=== PATIENT | male | born 1955 | race Caucasian/White ===

== ENCOUNTER → 2019-04-09 08:28 | Outpatient (CLI) | payer OTHER | END | disposition home or self-care (01) | LOC: D.HCCARDIO 08:28 → D.HCCECHO 11:30 | PROVIDERS: ATTEND Internal Medicine Cardiovascular Disease | DX: I20.9 Angina pectoris, unspecified (principal); R07.9 Chest pain, unspecified ==

== ENCOUNTER 2019-04-24 06:19 | Outpatient (CLI) | payer OTHER ==
[~2019-04-24] VITALS: Ht 182.9 cm; Wt 86.8 kg
--- NOTE | ~2019-04-24 | HEMODYNAMI ---
PATIENT:RICH PASCAL MEDICAL RECORD: [id number] : 57 LOCATION:[facility] ADMISSION DATE: 04/24/19 Generatedon:04/24/20198:51 Patient name: RICH PASCAL Patient #: [id number] SSN: [id number] : 1955 Date of study: 04/24/2019 Page: Of Hemodynamic Procedure Report Patient Data Patient Demographics Procedure consent was obtained First Name: RICH Gender: Male Last Name: NAIDA : 1955 Patient #: [id number] Age: 64 year(s) Race: SSN: [id number] Additional ID: [id number] Contact details [address]: [address] [place] [address] State: [place] City: [place] Zip code: [address] Past Medical History Allergies: No known allergies Admission Admission Data Admission Date: 04/24/2019 Admission Time: 6:19 Arrival Date: 04/24/2019 Arrival Time: 0:00 Admit Source: Other [facility] #: [id number] Height (in.): 72.05 BSA: 2.09 (m2) Height (cm.): 183 BMI: 25.98 (kg/m2) Weight (lbs.): 191.8 Weight (kg.): 87 Lab Results Lab Result Date: 04/24/2019 Lab Result Time: 0:00 Biochemistry Name Units Result Min Max BUN mg/dl 15 --(--*-)-- 7 18 Creatinine mg/dl 0.9 --(-*--)-- 0.6 1.3 CBC Name Units Result Min Max Hematocrit % 43.3 --(*---)-- 42 54 Hemoglobin g/dl 14.7 --(-*--)-- 13.5 17.5 Procedure Procedure Types Cath Procedure Diagnostic Procedure LHC LH w/Coronaries Sedation Charges Moderate Sedation up to 15 minutes Procedure Description Procedure Date Procedure Date: 04/24/2019 Procedure Start Time: 8:37 Procedure End Time: 8:47 Procedure Staff Name Function Hilario Tafoya MD Performing Physician Mary Cornelius RT Monitor Bianca Capri RT Scrub Jet Gallagher RN Nurse Procedure Data Cath Procedure Fluoroscopy Diagnostic fluoroscopy Total fluoroscopy Time: 1.4 time: 1.4 min min Diagnostic fluoroscopy Total fluoroscopy dose: 227 dose: 227 mGy mGy Contrast Material Contrast Material Type Amount (ml) Isovue 300 47 Entry Location Entry Primary Successful Side Size Upsize Upsize Entry Closure Succes sful Closure Location (Fr) 1 (Fr) 2 (Fr) Remarks Device Remarks Femoral Right 5 Fr Exoseal artery Estimated blood loss: 5 ml Diagnostic catheters Device Type Used For End Catheter Placement MULTIPACK JL 4.0 5Fr Left Coronary catheter Angiography MULTIPACK 3DRC 5Fr Right Coronary catheter Angiography MULTIPACK Pigtail 5 Fr LV Angiography catheter Procedure Complications No complications Procedure Medications Medication Administration Route Dosage Oxygen etCO2 Nasal cannula 2 l/min Heparin Flush Bag added to field 2 bags (1000units/500ml NS) 0.9% NaCl I.V. 100 ml/hr Lidocaine 2% added to field 20 Fentanyl I.V. 50 mcg Versed I.V. 1 mg Fentanyl I.V. 50 mcg Versed I.V. 1 mg Fentanyl I.V. 50 mcg Hemodynamics Rest BSA: 2.09 (m2) HGB: 14.7 (g/dl) O2 Consumption: Estimated: 257.51 (ml/min) O2 Co nsumption indexed: Estimated:123.21 (ml/min/m) Heart Rate: 87 (bpm) Pressure Samples Time Site Value (mmHg) Purpose Heart Use Rate(bpm) 8:42 LV 108/-5,12 Snapshot 85 8:43 AO 111/69(87) Pullback 84 8:43 LV 112/3,11 Pullback 84 Gradients Valve Time Site 1 Site 2 Mean SEP/DFP Peak To Heart Use (mmHg) (sec/min) Peak Rate (mmHg) (bpm) Aortic 8:43 LV AO 13 6 1 84 112/3,11 111/69(87) Calculations Valve P-P Mean Valve Index Valve Source Name Gradient Area Flow (cm2) Aortic 1 13 1 13 Snapshots Pre Cath Intra NCS Post Cath Vital Signs Time Heart Resp SPO2 etCO2 NIBP (mmHg) Rhythm Pain Sedation Rate (ipm) (%) (mmHg) Status Level (bpm) 8:25:56 95 16 96 0 139/96(109) NSR 0 (11) 10(A) , No pain 8:30:32 84 16 96 28.6 148/84(112) NSR 0 (11) 10(A) , No pain 8:34:44 82 17 96 15.8 126/86(109) NSR 0 (11) 10(A) , No pain 8:38:52 80 17 94 21 112/75(91) NSR 0 (11) 9(A) , No pain 8:42:58 82 16 93 24.1 115/69(97) NSR 0 (11) 9(A) , No pain 8:47:02 95 17 94 32.4 113/72(97) NSR 0 (11) 9(A) , No pain Medications Time Medication Route Dose Verified Delivered Reason Notes Effe ctiveness by by 8:26:03 Oxygen etCO2 2 Hilario Jet Per Nasal l/min Michelet Gallagher RN physician cannula 8:26:11 Heparin Flush added 2 Hilario Jet used for Bag to bags Michelet Gallagher certified industrial hygienist (1000units/500ml field NS) 8:26:18 0.9% NaCl I.V. 100 Hilario Jet Per ml/hr Michelet Gallagher RN physician 8:26:26 Lidocaine 2% added 20ml Hilario Jet for local to vial Michelet Gallagher RN anesthetic field 8:34:40 Fentanyl I.V. 50 Hilario Jet for mcg Michelet Gallagher RN sedation 8:34:50 Versed I.V. 1 mg Hilario Jet for Michelet Gallagher RN sedation 8:36:42 Fentanyl I.V. 50 Hilario Jet for mcg Michelet Gallagher RN sedation 8:36:46 Versed I.V. 1 mg Hilario Jet for Michelet Gallagher RN sedation 8:39:25 Fentanyl I.V. 50 Hilario Jet for alvin Gallagher RN sedation Procedure Log Time Note 8:15:07 Informed consent obtained and on chart 8:15:24 Procedure Status Elective Heart Cath (OP). 8:15:26 Bianca Farooq RT(R) sent for patient. Start room use. 8:15:27 Time tracking: Regular hours (M-F 7:00 - 5:00) 8:15:32 Plan of Care:Hemodynamics will remain stable., Cardiac rhythm will remain stable., Comfort level will be maintained., Respiratory function will remain adequate., Patient/ family verbilizes understanding of procedure., Procedure tolerated without complication., Recovers from procedure without complications.. 8:19:40 Lab Result : BUN 15 mg/dl 8::40 Lab Result : Hematocrit 43.3 % 8::40 Lab Result : Hemoglobin 14.7 g/dl 8::40 Lab Result : Creatinine 0.9 mg/dl 8::47 Arrival Date: 04/24/2019 12:00:00 AM 8:20:07 Admit Source: Other 8:20:13 Patient Height : 72.05 inches 8:20:19 Patient Weight : 191.8 lbs 8:20:34 Patient received from Pre/Post Procedure Room to CCL 1 Alert and oriented. Tansferred to table in Supine position. 8:20:36 Warm blankets applied, and roma hugger turned on for patient comfort. 8:20:37 Correct patient and procedure confirmed by team. 8:20:38 ECG and BP/O2 sat monitors applied to patient. 8:24:25 Vital chart was started 8:26:03 Oxygen 2 l/min etCO2 Nasal cannula was administered by Jet Gallagher RN; Per physician; Verbal order read back and verified. 8:26:11 Heparin Flush Bag (1000units/500ml NS) 2 bags added to field was administered by Jet Gallagher RN; used for procedure; Verbal order read back and verified. 8:26:18 0.9% NaCl 100 ml/hr I.V. was administered by Jet Gallagher RN; Per physician; Verbal order read back and verified. 8:26:26 Lidocaine 2% 20ml vial added to field was administered by Jet Gallagher RN; for local anesthetic; Verbal order read back and verified. 8:28:04 Baseline sample Acquired. 8:28:13 Rhythm: sinus rhythm 8:28:15 Full Disclosure recording started 8:28:16 8:28:25 H&P Date Dictated: 04/24/2019 H&P Addendum completed by physician on day of procedure. (MUST COMPLETE FOR ALL OUTPATIENTS), New H&P dictated by physician.. 8:28:27 Pre-procedure instructions explained to patient. 8:28:27 Pre-op teaching completed and patient verbalized understanding. 8:28:31 Family in patients room. 8:28:34 Patient NPO since Midnight. 8:28:43 Patient allergic to No known allergies 8:28:54 Is the patient allergic to Iodine/contrast media? No. 8:28:56 Was the patient premedicated? Yes 8:29:02 Is patient on blood thinner?No 8:29:06 Patient diabetic? No. 8:29:12 ----Pre-sedation anethsthesia assessment.---- 8:29:16 Previous problem with sedation/anesthesia? No ? 8:29:18 Snore? Yes 8:29:23 Sleep apnea? No 8:29:25 Deviated septum? No 8:29:28 Opens mouth fully? Yes 8:29:31 Sticks out tongue? Yes 8:29:51 Airway obstruction? Yes COPD 8:30:00 Dentures? No ? 8:30:06 Pre procedure: right dorsailis pedis pulse 1+ Palpable, but thready & weak; easily obliterated 8:30:19 IV patent on arrival in left forearm with 0.9% NaCl at KVO. 8:30:29 Lab results completed and on chart. 8:31:07 Stress Test: yes; abnormal MODERATE/INFERIOR 8:33:42 Risk of Mortality: 0.1 8:33:46 Risk of blood transfusion: 0.1 8:33:51 Risk of STEPHANIE: 0.3 8:33:56 Right groin area was prepped with chlora-prep and draped in sterile fashion 8:33:58 Alarms reviewed by R. N. 8:33:59 Sharps counted by scrub and verified by R.N. 8:34:01 Physician arrived 8:34:02 --------ALL STOP TIME OUT------ 8:34:05 Final Timeout: patient, procedure, and site verified with staff and physician. All members of the team are in agreement. 8:34:08 Right groin site verified by team. 8:34:13 Fire Safety Assessment: A--An alcohol-based skin anteseptic being used preoperatively., C--Open oxygen or nitrous oxide is being used., D--An ESU, laser, or fiber-optic light is being used. 8:34:19 Physical assessment completed. ASA score P 2 - A patient with mild systemic disease as per Hilario Tafoya MD. 8:34:24 1) 90+ Normal kidney functon but urine findings or structural abnormalities or genetic trait point to kidney disease. 8:34:30 Maximum allowable contrast dose (3.7 X eGFR X 0.75)250 ml. 8:34:37 Sedation plan: IV Moderate Sedation Medication:Versed, Fentanyl 8:34:40 Fentanyl 50 mcg I.V. was administered by Jet Gallagher RN; for sedation; Verbal order read back and verified. 8:34:50 Versed 1 mg I.V. was administered by Jet Gallagher RN; for sedation; Verbal order read back and verified. 8:36:30 Use device set Femoral Dx 8:36:32 ACIST Syringe (06323) opened to sterile field. 8:36:33 Bag Decanter (2002S) opened to sterile field. 8:36:34 Medline Cath Pack ([id number]) opened to sterile field. 8:36:42 Fentanyl 50 mcg I.V. was administered by Jet Gallagher RN; for sedation; Verbal order read back and verified. 8:36:43 ACIST Hand Control (69798) opened to sterile field. 8:36:44 ACIST Manifold (19573) opened to sterile field. 8:36:44 DIAGNOSTIC Multipack 5Fr catheter set ([id number]) opened to sterile field. 8:36:46 Versed 1 mg I.V. was administered by Jet Gallagher RN; for sedation; Verbal order read back and verified. 8:36:46 Tegaderm 4 x 4 (1626W) opened to sterile field. 8:36:48 EXOSEAL 5Fr (EX500) opened to sterile field. 8:36:48 SHEATH 5FR [place] (QPL976) opened to sterile field. 8:36:49 EMERALD Guide Wire (288-281) opened to sterile field. 8:36:56 Procedure started. 8:37:01 Local anesthetic to right femoral artery with Lidocaine 2% by Hilario Tafoya MD.INITIAL ACCESS ONLY 8:37:53 Zero performed for pressure channel P1 8:38:08 Zero performed for pressure channel P1 8:38:27 A 5 Fr sheath was inserted into the Right Femoral artery 8:38:34 A MULTIPACK JL 4.0 5Fr catheter was advanced over the wire and used for Left Coronary Angiography. 8:38:39 LCA angiography performed. 8:38:49 Injector settings: Ml/sec: 3, Volume: 6, 8:39:25 Fentanyl 50 mcg I.V. was administered by Jet Gallagher RN; for sedation; Verbal order read back and verified. 8:40:06 Catheter removed. 8:40:21 A MULTIPACK 3DRC 5Fr catheter was advanced over the wire and used for Right Coronary Angiography. 8:41:07 RCA angiography performed. 8:41:12 Injector settings: Ml/sec: 3, Volume: 6, 8:41:17 Catheter removed. 8:41:28 A MULTIPACK Pigtail 5 Fr catheter was advanced over the wire and used for LV Angiography. 8:42:20 Injector settings: Ml/sec: 5, Volume: 15, 8:42:27 LV hemodynamics recorded. 8:42:32 LV gram done using AZEVEDO 8:42:55 EF : 50 % 8:43:10 Catheter removed. 8:43:16 EXOSEAL 5Fr (EX500) opened to sterile field. 8:43:40 Sheath removed intact; hemostasis achieved with Exoseal to the Right Femoral artery. 8:44:11 Fluoroscopy time 01.40 minutes. 8:44:19 Fluoroscopy dose: 227 mGy 8:44:19 Flurop Dose total: 227 8:44:28 Contrast amount:Isovue 300 47ml. 8:44:33 Maximum allowable dose exceeded? No. 8:44:34 Procedure ended.(Physican Out) 8:44:44 Sharps counted by scrub and verified by R.N. 8:44:53 Dose Area Product 53702 mGy/cm. 8:44:56 Insertion/operative site no bleeding no hematoma. 8:45:02 Post-op/insertion site Right Femoral artery dressed using a 4 x 4 and Tegaderm. 8:45:07 Post right femoral artery:stable 8:45:10 Post Procedure Pulses reassessed and unchanged 8:45:15 Post-procedure physical assessment completed. ASA score P 2 - A patient with mild systemic disease as per Hilario Tafoya MD. 8:45:19 Post procedure rhythm: unchanged. 8:45:23 Estimated blood loss: 5 ml 8:45:27 Post procedure instruction explained to patient.Patient verbalizes understanding. 8:45:28 Patient needs reinforcement of post procedure teaching. 8:45:44 Procedure type changed to Cath procedure, Diagnostic procedure, LHC, LHC w/Coronaries, Sedation Charges, Moderate Sedation up to 15 minutes 8:45:48 Procedure and supply charges have been captured, reviewed, submitted and are correct. 8:46:20 Procedure Complication : No complications 8:47:28 Vital chart was stopped 8:47:31 [facility] Findings: mild to moderate CAD (<70%) 8:47:34 Operative report dictated upon procedure completion. 8:47:34 See physician's report for complete and final results. 8:47:36 Report given to Pre/Post Procedure Room. 8:47:40 Patient transfered to Pre/Post Procedure Room with Stretcher. 8:47:43 Procedure ended. 8:47:43 Full Disclosure recording stopped 8:47:47 End room use (Document Last) 8:49:51 End room use (Document Last) Device Usage Item Name Manufacture Quantity Catalog Hospital Part Current Minimal L ot# / Number Charge Number Stock Stock Serial# Code ACIST Acist 1 47882 142855 456347 757559 20 Syringe Medical (26508) Systems Inc Bag Microtek 1 366012 89037 393826 5 Decanter Medical Inc. () Medline Medline 1 [id number] 188135 68604 512095 5 Cath Pack ([id number]) ACIST Hand Acist 1 10006 493135 329680 917893 5 Control Medical (44321) Systems Inc ACIST Acist 1 87447 371521 159873 431375 5 Manifold Medical (47523) Systems Inc DIAGNOSTIC Cardinal 1 IP1687 849754 71472 410301 30 Multipack Health 5Fr catheter set (TV3314) Tegaderm 4 3M 1 1626W 168862 768563 327422 5 x 4 (1626W) EXOSEAL 5Fr Cardinal 2 EX500 808278 928428 363401 10 (EX500) Health SHEATH 5FR Terumo 1 MRL786 558726 842431 259158 5 [place] (MCT119) EMERALD Cardinal 1 994-446 770153 726061 546854 5 Guide Wire Health (550-145) MULTIPACK Cardinal 1 320482 5 JL 4.0 5Fr Health catheter MULTIPACK Cardinal 1 558369 5 3DRC 5Fr Health catheter MULTIPACK Cardinal 1 104645 5 Pigtail 5 Health Fr catheter Signature Audit [place] Stage Time Signature Unsigned Intra-Procedure 04/24/2019 Mary 8:49:51 AM Adryan RT(R) (CV) Intra-Procedure 04/24/2019 Jet Gallagher 8:50:25 AM RN Intra-Procedure 04/24/2019 Hilario Tafoya MD 8:51:21 AM [facility] [address] [place] [address]
[2019-04-24] MEDS ORDERED: FLOMAX0.4 MG PO (07:13)
[2019-04-24] MEDS ORDERED: BAYER CHEWABLE81 MG PO (07:14)
[2019-04-24 07:25] VITALS: BP 133/80; Ht 182.9 cm; Wt 86.8 kg
[2019-04-24 07:51] LABS: BASOPHILS 0.4 % (0-2); EOSINOPHILS 3.7 % (0-7); HEMATOCRIT 43.3 % (42.0-54.0); HEMOGLOBIN 14.7 g/dL (13.5-17.5); IMMATURE GRANULOCYTES 0.9 % (0-5); LYMPHOCYTES 34.2 % (15-50); MCH 29.7 pg (26.0-34.0); MCHC 33.9 g/dL (31.0-37.0); MCV 87.5 fL (80.0-100.0); MEAN PLATELET VOLUME 9.3 fL (7.4-10.4); MONOCYTES 9.2 % (2-11); NEUTROPHILS 51.6 % (40-80); PLATELET COUNT 308 10x3/uL (130-400); RBC 4.95 10x6/uL (4.20-6.10); RDW 13.3 % (11.5-14.5); WBC 7.8 10x3/uL (4.8-10.8)
[2019-04-24 08:12] LABS: ALT (SGPT) 28 U/L (10-68); CALC OSMOLALITY 279 mosm/kg (275-300); CALCIUM 8.6 mg/dL (8.5-10.1); CHLORIDE - SERUM 105 mmol/L (98-107); CHOLESTEROL, TOTAL 198 mg/dL (0-200); CREATININE - SERUM 0.9 mg/dL (0.6-1.3); GLUCOSE 114 mg/dL (74-106); HDL CHOLESTEROL 50 mg/dL (32-96); LDL CHOLESTEROL 123 mg/dL (0-100); LDL-HDL RATIO 2.5 ratio (1.5-3.5); SODIUM 139 mmol/L (136-145); TRIGLYCERIDE 126 mg/dL (30-200); UREA NITROGEN 15 mg/dL (7-18); eGFR NON AFRICAN AMERICAN > 90 mL/min (90-120)
--- NOTE | 2019-04-24 08:55 | NUR ---
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 PT AWAKE, DROWSY. AT BS. MONITORS ESTAB. PT COOPERATIVE, DENIES NEEDS. ALARMS ON AND C/L IN REACH.
--- NOTE | 2019-04-24 09:14 | NUR ---
R GROIN SITE C/D/I, SOFT, NO S/S OF BLEEDING OR HEMATOMA. PULSES PALP WITH BRISK CAP REFILL NOTED.
--- NOTE | 2019-04-24 09:45 | NUR ---
R GROIN SITE C/D/I, NO S/S BLEEDING OR HEMATOMA. PULSES PALP. REMAINS AT BS. VSS.
--- NOTE | 2019-04-24 10:00 | NUR ---
R GROIN SITE C/D/I. HOB ELEVATED. PT GIVEN COFFE PER REQUEST. VSS. ALARMS ON AND C/L IN REACH.
--- NOTE | 2019-04-24 10:32 | NUR ---
PT SITTING UP WATCHING TV. R GROIN SITE SOFT, C/D/I. FEET WARM WITH PALP PULSES.
--- NOTE | 2019-04-24 10:57 | NUR ---
ALL D/C INSTRUCTIONS AND MEDS REVIEWED. PT VERBALIZES UNDERSTANDING. PIV D/C'D WITH CATH INTACT. PT ALLOWED UP TO GET DRESSED.
--- NOTE | 2019-04-24 11:00 | NUR ---
PT WENT TO BR, THEN DC/D HOME VIA WC TO PRIVATE VEHICLE WITH ALL PAPER WORK AND BELONGINGS.
== END 2019-04-24 11:00 | disposition home or self-care (01) ==
LOC: D.CATH 06:19
PROVIDERS: ATTEND Internal Medicine Cardiovascular Disease
DX: I20.9 Angina pectoris, unspecified (principal); R94.30 Abnormal result of cardiovascular function study, unspecified; R07.9 Chest pain, unspecified; Z72.0 Tobacco use; J44.9 Chronic obstructive pulmonary disease, unspecified

== ENCOUNTER 2019-05-15 06:13 | Outpatient (CLI) | payer OTHER ==
[~2019-05-15] VITALS: Ht 182.9 cm; Wt 90.9 kg
[~2019-05-15 06:13] MED LIST: BAYER CHEWABLE81 MG PO; FLOMAX0.4 MG PO
[2019-05-15 06:35] LABS: BASOPHILS 0.6 % (0-2); EOSINOPHILS 4.4 % (0-7); HEMATOCRIT 43.3 % (42.0-54.0); HEMOGLOBIN 14.3 g/dL (13.5-17.5); IMMATURE GRANULOCYTES 0.3 % (0-5); LYMPHOCYTES 37.8 % (15-50); MCH 29.1 pg (26.0-34.0); MCV 88.2 fL (80.0-100.0); MEAN PLATELET VOLUME 9.4 fL (7.4-10.4); MONOCYTES 10.5 % (2-11); NEUTROPHILS 46.4 % (40-80); PLATELET COUNT 226 10x3/uL (130-400); RBC 4.91 10x6/uL (4.20-6.10); RDW 13.5 % (11.5-14.5); WBC 7.1 10x3/uL (4.8-10.8)
[2019-05-15 06:38] LABS: APTT 33.2 SECONDS (22.8-39.4)
[2019-05-15 06:44] LABS: INR 0.92 (0.85-1.17); PROTIME 12.4 SECONDS (11.6-15.0)
[2019-05-15] MEDS ORDERED: SYMBICORT 16010.2 GM INH (07:18)
[2019-05-15] MEDS ORDERED: ALBUTEROL SULF8.5 GM INH (07:18)
[2019-05-15 07:39] VITALS: BP 136/76; Ht 182.9 cm; Wt 90.9 kg
--- NOTE | 2019-05-15 10:26 | NUR ---
0947 VS BEING RECORDED ORDERED ON POST PROCEDURE FORM WHICH IS PART OF THE PAPER CHART.
--- NOTE | 2019-05-15 13:33 | NUR ---
1155 IV DC'D. CATHETER TIP INTACT. NO BLEEDING AT SITE.BANDAID APPLIED. PT AND HIS VOICE UNDERSTANDING OF DISCHARGE INSTRUCTIONS. 1200 PT AMBULATED TO BR WITHOUT ASSISTANCE. VOIDED WITHOUT DIFFICULTY.
[2019-05-16 14:09] LABS: FUNGUS STAIN Final report (())
[2019-05-16 18:08] LABS: ACID FAST SMEAR Negative (()); AFB SPECIMEN PROCESSING Concentration (())
== END 2019-05-15 12:09 | disposition home or self-care (01) ==
LOC: D.OPS 06:13
PROVIDERS: ATTEND Internal Medicine Pulmonary Disease
DX: J85.2 Abscess of lung without pneumonia (principal)

== ENCOUNTER → 2019-06-05 09:00 | Outpatient (CLI) | payer OTHER ==
[2019-05-15 07:39] VITALS: BMI 27.2
[~2019-06-05 09:00] MED LIST changes: +ALBUTEROL SULF8.5 GM INH; +SYMBICORT 16010.2 GM INH
== END | disposition home or self-care (01) ==
LOC: D.HCCECHO 09:00
PROVIDERS: ATTEND Internal Medicine Cardiovascular Disease
DX: R06.00 Dyspnea, unspecified (principal)